=== PATIENT | male | born 1980 | race Caucasian/White ===

== ENCOUNTER 2018-11-06 12:34 | Emergency (ER) | payer OTHER ==
[2018-11-06 12:47] VITALS: TEMP 99.5
--- NOTE | 2018-11-06 13:38 | XR ---
EXAMINATION TYPE: XR knee 4V LT DATE OF EXAM: 11/06/2018 CLINICAL HISTORY: Twisting injury yesterday with pain and swelling. TECHNIQUE: Three views of the left knee are obtained. A fourth sunrise view was acquired. COMPARISON: None. FINDINGS: There is no acute fracture/dislocation evident in left knee. The tri-compartment joint sp aces appear within normal limits. Patellar articulation is within normal limits on the sunrise view. Increased density suprapatellar bursa is consistent with moderate to large joint effusion. IMPRESSION: There is no acute fracture or dislocation in the left knee. Moderate to large-sized supr apatellar joint effusion suspected.
[2018-11-06] MEDS ORDERED: KETOROLAC 30 MG/ML 1 ML VIAL IM STA (13:53)
--- NOTE | 2018-11-06 14:05 | ED ---
General Adult HPI - General Chief complaint: Extremity Injury, Lower Stated complaint: lt knee injury Time Seen by Provider: 11/06/18 12:54 Source: patient, RN notes reviewed, old records reviewed Mode of arrival: wheelchair Limitations: no limitations - History of Present Illness Initial comments: 38-year-old male patient presents to ED chief complaint of left knee injury. Patient reports that he was wrestling with friends yesterday when he felt his left knee buckled inward. Patient currently has an in the lateral aspect of left knee, as well as pain to range of motion. Patient has been able to bear some weight, has pain with flexion and extension. Patient denies any other injuries at this time. Denies any other complaints. Systemic: Pt denies fatigue, fever/chills, rash. Pt denies weakness, night sweats, weight loss. Neuro: Pt denies headache, visual disturbances, syncope or pre-syncope. HEENT: Pt denies ocular discharge or irritation, otalgia, rhinorrhea, pharyngitis or notable lymphadenopathy. Cardiopulmonary: Pt denies chest pain, SOB, heart palpitations, dyspnea on exertion. Abdominal/GI: Pt denies abdominal pain, n/v/d. : Pt denies dysuria, burning w/ urination, frequency/urgency. Denies new onset urinary or bowel incontinence. MSK: Pt denies loss of strength or function in extremities. Neuro: Pt denies new onset weakness, paresthesias. - Related Data Home Medications Medication Instructions Recorded Confirmed Naproxen [Naprosyn] 250 mg PO Q12HR 09/12/14 09/12/14 Omeprazole [PriLOSEC] 20 mg PO AC-[id number] 09/12/14 09/12/14 Previous Rx's Medication Instructions Recorded Naproxen [Naprosyn] 500 mg PO Q12HR #20 tab 09/12/14 Allergies Allergy/AdvReac Type Severity Reaction Status Date / Time latex Allergy Rash/Hives Verified 11/06/18 12:48 prednisone Allergy Swelling Verified 11/06/18 12:48 Review of Systems ROS Statement: Those systems with pertinent positive or pertinent negative responses have been documented in the HPI. ROS Other: All systems not noted in ROS Statement are negative. Past Medical History Past Medical History: No Reported History History of Any Multi-Drug Resistant Organisms: None Reported Additional Past Surgical History / Comment(s): cactus quill removed from scrotum Past Psychological History: Depression Smoking Status: Current every day smoker Past Alcohol Use History: None Reported Past Drug Use History: None Reported General Exam - General Exam Comments Initial Comments: Constitutional: NAD, AOX3, Pt has pleasant affect. HEENT: NC/AT, trachea midline, neck supple, no lymphadenopathy. Posterior pharynx non erythematous, without exudates. External ears appear normal, without discharge. Mucous membranes moist. Eyes PERRLA, EOM intact. There is no scleral icterus. No pallor noted. Cardiopulmonary: RRR, no murmurs, rubs or gallops, no JVD noted. Lungs CTAB in anterior and posterior brunner. No peripheral edema. Abdominal exam: Abdomen soft and non-distended. Abdomen non-tender to palpation in all 4 quadrants. Bowel sounds active in LLQ. No hepatosplenomegaly. No ecchymosis Neuro: CN II-XII grossly intact. No nuchal rigidity. No raccon eyes, no nicole sign, no hemotympanum. No cervical spinal tenderness. MSK: Left knee mildly tender to palpation lateral aspect, flexion and extension intact, with pain. Not able to bear weight. Distal pulses intact and equal. No posterior calf tenderness bilaterally, homans sign negative bilaterally. Posterior tibialis and radial pulse +2 bilaterally. Sensation intact in upper and lower extremities. Full active ROM in upper and lower extremities, 5/5 stregnth. Limitations: no limitations Course Vital Signs 11/06/18 12:46 Temperature 99.5 F Pulse Rate 89 Respiratory 18 Rate Blood Pressure 146/82 O2 Sat by Pulse 99 Oximetry Medical Decision Making - Medical Decision Making 38-year-old male patient presents to ED chief complaint of left knee injury. Patient vital signs stable, afebrile. Physical exam displayed active range of motion intact, with pain. Not able to bear weight. Plain films displayed no acute fracture dislocation, moderate to large sized suprapatellar joint effusion. Patient placed in knee immobilizer. Patient discharged with crutches, orthopedic follow up. Disposition Clinical Impression: Knee sprain Disposition: HOME SELF-CARE Condition: Stable Instructions (If sedation given, give patient instructions): Knee Sprain (ED) Additional Instructions: Patient to adhere to previously discussed treatment plan and will take medication(s) as directed. Patient to follow up with PCP in 1-2 days. Patient to return to ED if symptoms do not improve. Follow up with PCP and orthopedic consult tomorrow, return to ER if condition worsens. Is patient prescribed a controlled substance at d/c from ED?: No Referrals: Scott Gamez MD [Primary Care Provider] - 1-2 days Edy Atkins MD [Medical Doctor] - 1-2 days
[2018-11-06 14:38] VITALS: BP 144/80; PULSE 85; RESP 14
== END 2018-11-06 14:17 | disposition home or self-care (01) ==
LOC: EC 12:34
DX: S83.92XA Sprain of unspecified site of left knee, initial encounter (principal); F17.200 Nicotine dependence, unspecified, uncomplicated; Z79.1 Long term (current) use of non-steroidal anti-inflammatories (NSAID); Z79.899 Other long term (current) drug therapy; Z91.040 Latex allergy status; Z88.8 Allergy status to other drugs, medicaments and biological substances; X50.1XXA Overexertion from prolonged static or awkward postures, initial encounter; Y93.72 Activity, wrestling
CPT/HCPCS: 73564; 99284; 96372; J1885